=== PATIENT | female | born 1970 | race Caucasian/White ===

== ENCOUNTER 2021-12-23 12:47 | Emergency (ER) | payer BC, OTHER ==
[~2021-12-23] VITALS: Ht 152.4 cm; Wt 107.0 kg
--- NOTE | 2021-12-23 13:00 | NUR ---
RECEIVED PT 51 YRS OLD FEMALE CAME [place]Orke with fraind C/O chest pain ANP RESSURE STARTED AT 1200 PRESSURE PAIN 07/28
--- NOTE | 2021-12-23 13:15 | NUR ---
SEEN BY DR. HEREDIA
--- NOTE | 2021-12-23 13:30 | NUR ---
INSERTED ANGO CATHTER G 20 ON RT AC BLOOD DROW AND SENT TO LAB
[2021-12-23 13:34] LABS: BASOPHILS % (AUTO) 0.6 % (0.0-2.0); HEMATOCRIT 40 % (33-45); HEMOGLOBIN 12.9 g/dL (11.5-14.8); LYMPHOCYTES # (AUTO) 2.6 K/uL (0.8-4.8); LYMPHOCYTES % (AUTO) 37.9 % (20.0-44.0); MEAN CORPUSCULAR HGB CONC 33 g/dl (31.0-36.0); MEAN CORPUSCULAR VOLUME 87 fL (82-100); MONOCYTES # (AUTO) 0.3 K/uL (0.1-1.30); MONOCYTES % (AUTO) 4.8 % (2.0-12.0); NEUTROPHILS # (AUTO) 3.7 K/uL (1.8-8.9); NEUTROPHILS % (AUTO) 54.7 % (43.0-81.0); PLATELET COUNT (AUTO) 206 K/uL (150-450); RED BLOOD CELL COUNT(AUTO) 4.56 MIL/uL (4.0-5.2); WHITE BLOOD COUNT (AUTO) 6.8 K/uL (4.3-11.0)
[2021-12-23 13:43] LABS: CALCIUM, SERUM 8.8 mg/dL (8.5-10.1); CARBON DIOXIDE 31 mmol/L (21-32); CHLORIDE 104 mmol/L (98-107); CREATININE 0.9 mg/dL (0.6-1.3); GLUCOSE 97 mg/dL (74-106); POTASSIUM 3.5 mmol/L (3.5-5.1); SODIUM SERUM 140 mmol/L (136-145); UREA NITROGEN, BLOOD 12 mg/dL (7-18)
--- NOTE | 2021-12-23 14:29 | NUR ---
BLOOD DROW FOR REPEAT TROPONINE
--- NOTE | 2021-12-23 15:30 | NUR ---
RESTING AND COMFORTABLE DINIALE CHEST PAIN
--- NOTE | 2021-12-23 16:17 | NUR ---
REAPEAT EKG DONE AT BED SIDE
[2021-12-23] MEDS ORDERED: LIDOCAINE VISCOUS 2% UD 15 ML UDC MM ONE (16:30)
[2021-12-23] MEDS ORDERED: MAG HYDROX/AL HYDROX/SIMETH 30 ML UDC PO ONE (16:30)
[2021-12-23] MEDS ORDERED: LIDOCAINE VISCOUS 2% UD 15 ML UDC ONE (17:11)
[2021-12-23] MEDS ORDERED: MAG HYDROX/AL HYDROX/SIMETH 30 ML UDC ONE (17:12)
[2021-12-23] MEDS: FAMOTIDINE/PF INJ 20 MG/2 ML VIAL IV ONE ×2 (17:13→17:19)
--- NOTE | 2021-12-23 17:16 | NUR ---
Patient discharged to home in stable condition. Written and verbal after care instructions given. Patient verbalizes understanding of instruction.
[2021-12-23 17:36] VITALS: BP 147/77
== END 2021-12-23 17:37 | disposition home or self-care (01) ==
LOC: ER 12:55
DX: R10.13 Epigastric pain (principal); R07.89 Other chest pain
CPT/HCPCS: 36415; 71045-TC; 80048-TC; 84484-TC; 85025-TC

== ENCOUNTER 2023-12-04 06:06 | Emergency (ER) | payer BC, OTHER ==
[~2023-12-04] VITALS: Ht 165.1 cm; Wt 111.1 kg
[2023-12-04] MEDS ORDERED: HYDROCODONE/APAP 5/325MG TABLET ONE (06:58)
[2023-12-04] MEDS: HYDROCODONE/APAP 5/325MG TABLET PO ONE (07:00)
[2023-12-04] MEDS ORDERED: IBUP-1953 PO (07:53)
[2023-12-04 08:01] VITALS: BP 143/83; TEMP 97.9; O2SAT 98
== END 2023-12-04 08:01 | disposition home or self-care (01) ==
LOC: ER 06:11
DX: S46.811A Strain of other muscles, fascia and tendons at shoulder and upper arm level, right arm, initial encounter (principal); W01.0XXA Fall on same level from slipping, tripping and stumbling without subsequent striking against object, initial encounter; Y93.89 Activity, other specified; Y92.89 Other specified places as the place of occurrence of the external cause; Y99.8 Other external cause status
CPT/HCPCS: 73030-TC